=== PATIENT | female | born 1980 | race Caucasian/White ===

== ENCOUNTER 2021-02-23 17:54 | Emergency (ER) | payer BC, MEDICARE ==
[~2021-02-23] VITALS: Ht 162.6 cm; Wt 94.9 kg
[~2021-02-23 17:54] MED LIST: ATI.5 PO; IBUP-974 PO; LANTUS SUBQ; SLIDE SUBQ
[2021-02-23 18:04] VITALS: BP 132/79
[2021-02-23] MEDS ORDERED: CEPH-588 PO (18:18)
[2021-02-23] MEDS ORDERED: IBUP-1842 PO (18:18)
[2021-02-23 18:35] VITALS: BP 132/79
--- NOTE | 2021-02-23 18:35 | NUR ---
NO NURSING INTERVENTIONS GIVEN
--- NOTE | 2021-02-23 18:35 | NUR ---
Patient discharged with v/s stable. Written and verbal after care instructions ABOUT SKIN ABSCESS given and explained. Patient alert, oriented and verbalized understanding of instructions. Ambulatory with steady gait. All questions addressed prior to discharge. ID band removed. Patient advised to follow up with PMD. Rx of KEFLEX AND IBUPROFEN given. Patient educated on indication of medication including possible reaction and side effects. Opportunity to ask questions provided and answered.
== END 2021-02-23 18:35 | disposition home or self-care (01) ==
LOC: MED 17:54
DX: L02.416 Cutaneous abscess of left lower limb (principal); E11.9 Type 2 diabetes mellitus without complications; Z79.82 Long term (current) use of aspirin; Z79.899 Other long term (current) drug therapy; Z79.4 Long term (current) use of insulin
CPT/HCPCS: 99284

== ENCOUNTER 2021-02-26 10:12 | Inpatient (IN) | payer BC, SELFPAY ==
[~2021-02-26] VITALS: Ht 162.6 cm; Wt 92.1 kg
[~2021-02-26 10:12] MED LIST changes: +CEPH-588 PO; +IBUP-1842 PO
[2021-02-26 10:24] VITALS: BP 140/83
--- NOTE | 2021-02-26 10:39 | NUR ---
40/F presents to ED with c/o abscess to left inner thigh. Patient states she has had worsening abscess in left inner thigh, states she was seen here two days ago for the same symptoms and given Rx of Cephalexin but states she has not experienced any relief. Patient states 10/10 throbbing/burning pain that radiates to left labia and worsens with ambulation or attempting to sit straight up. Denies taking anything at home for pain, golf size abscess noted with yellow drainage to left inner thigh. Patient denies fever, chills, cp or sob, patient able to ambulate without assistance with steady gait.
[2021-02-26] MEDS ORDERED: HYDROcodone/APAP 5/325 MG 1 TAB TAB PO ONE (10:50)
[2021-02-26] MEDS ORDERED: KETOROLAC 30 MG/ML VIAL IM ONE (10:50)
[2021-02-26] MEDS: LIDOCAINE/EPI 1% 1:100000 20 ML VIAL INJ ONE ×2 (11:54→13:15)
[2021-02-26] MEDS ORDERED: NACL 0.9% 1,000 ML IV ONE (12:00)
[2021-02-26] MEDS ORDERED: PIPERACILLIN/TAZOBACTAM 3.375 GM in DEXTROSE 5% 50 ML IV ONE (12:00)
[2021-02-26] MEDS ORDERED: PIPERACILLIN/TAZOBACTAM 3.375 GM VIAL IV ONE ×3 (12:35→23:34)
[2021-02-26 12:47] LABS: BASOPHILS % (AUTO) 0.4 % (0.0-2.0); EOSINOPHILS % (AUTO) 0.5 % (0.0-4.0); HEMATOCRIT 36.7 % (36-48); LYMPHOCYTES # (AUTO) 1.8 K/uL (2.5-16.5); LYMPHOCYTES % (AUTO) 23.1 % (20.5-51.1); MEAN CORPUSCULAR HEMOGLOBIN 20 pg (27-31); MEAN CORPUSCULAR HGB CONC 30 g/dL (33-37); MONOCYTES # (AUTO) 0.5 K/uL (0.8-1.0); MONOCYTES % (AUTO) 5.9 % (1.7-9.3); NEUTROPHILS # (AUTO) 5.4 K/uL (1.8-7.7); NEUTROPHILS % (AUTO) 70.1 % (42.2-75.2); PLATELET COUNT (AUTO) 183 K/uL (140-450); RED BLOOD CELL COUNT(AUTO) 5.64 MIL/uL (4.20-5.40); RED CELL DISTRIBUTION WIDTH 23.1 % (11.6-13.7); WHITE BLOOD COUNT (AUTO) 7.7 K/uL (4.8-10.8)
--- NOTE | 2021-02-26 12:54 | NUR ---
MARY CARMEN SWAB COLLECTED AND WALKED TO LAB.
[2021-02-26 13:23] LABS: ANION GAP 15.9 (8-16); CARBON DIOXIDE 25.1 mmol/L (21-32); CREATININE 0.6 mg/dL (0.6-1.3)
[2021-02-26 13:39] LABS: ALBUMIN 3.4 g/dL (3.4-5.0); TOTAL BILIRUBIN 0.9 mg/dL (0.0-1.0)
--- NOTE | 2021-02-26 14:54 | NUR ---
DR. MILLS EVALUATING PATIENT AT BEDSIDE.
--- NOTE | 2021-02-26 16:00 | NUR ---
Patient appears to be resting with eyes closed, respirations even and unlabored. 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
[2021-02-26] MEDS ORDERED: DOCUSATE SODIUM 100 MG GELCAP PO PRN (16:20)
[2021-02-26] MEDS ORDERED: ACETAMINOPHEN 325 MG TAB PO PRN (16:20)
[2021-02-26] MEDS ORDERED: ONDANSETRON 4 MG/2 ML VIAL IM/IVP PRN (16:20)
[2021-02-26] MEDS ORDERED: MAGNESIUM OXIDE 400 MG TAB PO PRN (16:20)
[2021-02-26] MEDS ORDERED: POTASSIUM CHLORIDE 10 MEQ TABER PO PRN (16:20)
[2021-02-26] MEDS ORDERED: SODIUM PHOS / POTASSIUM PHOS 1 PKT PDR PO PRN (16:20)
[2021-02-26] MEDS ORDERED: MORPHINE SULFATE 2 MG/ML SYR IVP PRN (16:20)
[2021-02-26] MEDS ORDERED: DEXTROSE 50% 50 ML SYR IVP PRN (16:25)
[2021-02-26] MEDS: BLOOD GLUCOSE MONITORING 1 DEV DEV FS SCH ×2 (17:03→23:45)
[2021-02-26] MEDS: NACL 0.9% 1,000 ML IV SCH ×2 (17:03→23:49)
[2021-02-26] MEDS: INSULIN LISPRO SLIDING SCALE 100 UNITS/ML VIAL SUBQ PRN (17:08)
[2021-02-26 17:15] LABS: MAGNESIUM 1.7 mg/dL (1.8-2.4); PHOSPHORUS 3.4 mg/dL (2.5-4.9)
--- NOTE | 2021-02-26 18:15 | NUR ---
Dr. GUERRA bedside speaking with patient
--- NOTE | 2021-02-26 18:20 | NUR ---
Patient c/o 7/10 pain to left inner thigh, medicated with PRN ordered medication.
[2021-02-26] MEDS: PIPERACILLIN/TAZOBACTAM 3.375 GM in DEXTROSE 5% 50 ML IV SCH ×2 (18:29→23:49)
--- NOTE | 2021-02-26 18:49 | NUR ---
Patient ambulated to restroom with steady gait to provide urine sample.
[2021-02-26 19:14] LABS: APPEARANCE,URINE CLEAR (CLEAR); BILIRUBIN,URINE NEGATIVE (NEGATIVE); BLOOD, URINE NEGATIVE (NEGATIVE); COLOR,URINE ORANGE (YELLOW); LEUKOCYTE ESTERASE ,URINE NEGATIVE (NEGATIVE); NITRITE, URINE NEGATIVE (NEGATIVE); UGLUCOSE 2+ (NEGATIVE)
--- NOTE | 2021-02-26 19:24 | NUR ---
Pt report given to Shaylee. Transfer of care at this time.
--- NOTE | 2021-02-26 19:28 | NUR ---
RECEIVED REPORT FROM CRYSTAL ORELLANA. TRANSFER OF CARE AT THIS TIME.
[2021-02-26 19:56] LABS: BARBITURATE, URINE NEGATIVE ng/ml (NEG <=200); BENZODIAZEPINE, URINE NEGATIVE ng/mL (NEG <=200); CANNABINOID, URINE NEGATIVE ng/mL (NEG <=50); COCAINE, URINE NEGATIVE ng/mL (NEG <=300); OPIATE, URINE POSITIVE ng/mL (NEG <=2000); PHENCYCLIDINE SCREEN,URINE NEGATIVE ng/mL (NEG <=25)
[2021-02-26] MEDS ORDERED: ceFAZolin 1,000 MG VIAL ONE (20:03)
--- NOTE | 2021-02-26 20:12 | NUR ---
Patient will be admitted to care of DR. GUERRA. Admited to OR. Belongings list completed. ACCOMPANIED BY OR NURSE TO OR ROOM.
[2021-02-26] MEDS ORDERED: HYDROmorphone 1 MG/ML AMP IVP PRN ×2 (20:20→20:55)
[2021-02-26] MEDS ORDERED: PROPOFOL 200 MG/20 ML VIAL IV ONE (20:29)
[2021-02-26] MEDS ORDERED: ONDANSETRON 4 MG/2 ML VIAL ONE (20:29)
[2021-02-26] MEDS ORDERED: fentaNYL citrate 0.05 MG/ML VIAL ONE (20:30)
[2021-02-26] MEDS ORDERED: BUPIVACAINE-MPF/EPI 0.5% 30 ML VIAL INJ ONE (20:37)
[2021-02-26] MEDS ORDERED: ONDANSETRON 4 MG/2 ML VIAL IV PRN (20:55)
[2021-02-26] MEDS ORDERED: MORPHINE SULFATE 4 MG/ML SYR IV PRN (20:55)
--- NOTE | 2021-02-26 22:00 | NUR ---
RECEIVED NEW ADMISSION FROM OR, DX: ABSCESS LEFT POSTERIOR THIGH, HAD AN I&D, HX: DM, HYPOTHYROIDISM, PT HAS BELONGINGS WITH HER, MRSA SWAB WAS TAKEN, VITALS BP 118/72, HR 97, TEMP 98.3, RR 20 ON ROOM AIR, A&O X4, AMBULATORY, SCHEDULED MEDS GIVEN, HAS A LAC 20G, CALL LIGHT WITHIN REACH, SAFETY MEASURES IN PLACE, WILL CONTINUE TO MONITOR.
--- NOTE | 2021-02-26 23:30 | NUR ---
PATIENT IS KEPT COMFORTABLE IN BED, SAFETY MEASURES IN PLACE, PT HAD AN APPETITE - PROVIDED WATER AND A TURKEY SANDWICH, WILL CONTINUE TO MONITOR.
[2021-02-26] MEDS: INSULIN LANTUS 100 UNITS/ML 10 ML VIAL SUBQ SCH (23:49)
[2021-02-26] MEDS: HYDROcodone/APAP 5/325 MG 1 TAB TAB PO PRN (23:55)
--- NOTE | 2021-02-27 02:43 | NUR ---
PATIENT IS ASLEEP, NO SIGNS OF DISTRESS, OBSERVATION OF CHEST RISE AND FALL, KEPT COMFORTABLE, IV SITE IS DRY AND PATENT, WILL CONTINUE TO MONITOR AND NOTIFY MD NEEDED.
[2021-02-27 04:00] VITALS: BP 113/65
[2021-02-27 05:54] LABS: BASOPHILS % (AUTO) 0.4 % (0.0-2.0); EOSINOPHILS # (AUTO) 0.1 K/uL (0-0.4); EOSINOPHILS % (AUTO) 0.7 % (0.0-4.0); HEMATOCRIT 31.1 % (36-48); HEMOGLOBIN 9.4 g/dL (12.0-16.0); LYMPHOCYTES # (AUTO) 2.2 K/uL (2.5-16.5); LYMPHOCYTES % (AUTO) 28.5 % (20.5-51.1); MEAN CORPUSCULAR HEMOGLOBIN 20 pg (27-31); MEAN CORPUSCULAR HGB CONC 30 g/dL (33-37); MEAN CORPUSCULAR VOLUME 65.5 fL (80-94); MONOCYTES # (AUTO) 0.6 K/uL (0.8-1.0); MONOCYTES % (AUTO) 7.7 % (1.7-9.3); NEUTROPHILS # (AUTO) 4.8 K/uL (1.8-7.7); NEUTROPHILS % (AUTO) 62.7 % (42.2-75.2); PLATELET COUNT (AUTO) 154 K/uL (140-450); RED BLOOD CELL COUNT(AUTO) 4.76 MIL/uL (4.20-5.40); RED CELL DISTRIBUTION WIDTH 23.2 % (11.6-13.7); WHITE BLOOD COUNT (AUTO) 7.6 K/uL (4.8-10.8)
[2021-02-27] MEDS ORDERED: PIPERACILLIN/TAZOBACTAM 3.375 GM VIAL IV ONE (05:55)
[2021-02-27] MEDS: HYDROcodone/APAP 5/325 MG 1 TAB TAB PO PRN ×2 (06:05→14:42)
[2021-02-27] MEDS: PIPERACILLIN/TAZOBACTAM 3.375 GM in DEXTROSE 5% 50 ML IV SCH ×4 (06:05→23:43)
[2021-02-27 06:06] LABS: ANION GAP 7.3 (8-16); CARBON DIOXIDE 28.4 mmol/L (21-32); CREATININE 0.6 mg/dL (0.6-1.3); POTASSIUM 3.7 mmol/L (3.5-5.1)
[2021-02-27] MEDS: INSULIN LISPRO SLIDING SCALE 100 UNITS/ML VIAL SUBQ PRN ×4 (06:08→21:49)
[2021-02-27] MEDS: BLOOD GLUCOSE MONITORING 1 DEV DEV FS SCH ×4 (06:18→21:44)
--- NOTE | 2021-02-27 07:14 | NUR ---
PATIENT HAS BEEN SCREENED AND CATEGORIZED MODERATE NUTRITION RISK. PATIENT WILL BE SEEN WITHIN 3-5 DAYS OF ADMISSION. 03/01/21-03/03/21 MIKE WHITNEY MS, RDN
--- NOTE | 2021-02-27 07:15 | NUR ---
RECEIVED REPORT FROM BPM DEVELOPER NURSE FOR CONTINUITY OF PATIENT CARE. PATIENT SLEEPING. NO ACUTE DISTRESS NOTED. PATIENT HAS R AC 20G RUNNING NS AT 60ML/HR. PATIENT ON ROOM AIR. ALL SAFETY MEASURES IN PLACE. CALL LIGHT WITHIN REACH WILL CONTINUE TO MONITOR.
--- NOTE | 2021-02-27 07:21 | NUR ---
ENDORSED PATIENT TO DAY SHIFT NURSE FOR CONTINUITY OF CARE
--- NOTE | 2021-02-27 09:13 | NUR ---
PATIENT SLEEPING. NO ACUTE DISTRESS NOTED. PATIENT ON ON ROOM AIR. ALL SAFETY MEASURES IN PLACE. CALL LIGHT WITHIN REACH. WILL CONTINUE TO MONITOR.
--- NOTE | 2021-02-27 11:40 | NUR ---
WOUND CARE EVALUATION NOTES: REASON FOR EVALUATION: CELLULITIS LEFT THIGH S/P I&D WOUND ASSESSMENT COMPLETED ON THIS 40 Y/O FEMALE ADMITTED TO [facility] FOR CELLULITIS ON LEFT THIGH. PAST MEDICAL HISTORY INCLUDES DM, THYROID DISORDER, ASTHMA, ANEMIA, MENORHAGIA. ALL ABOVE INFORMATION WAS OBTAINED FROM THE ADMISSION H&P. LABS ARE WBC 7.6, H/H 9.4/31.1, GLUCOSE 278, ALBUMIN 3.4. PATIENT IS AAOX4. SKIN IS WARM TO TOUCH, COLOR APPROPRIATE TO ETHNICITY. ORAL MUCOSAL MEMBRANES MOIST. INDEPENDENT IN TURNING AND ABLE TO AMBULATE INDEPENDENTLY WITH STEADY GAIT. PLAN OF WOUND CARE DISCUSSED WITH PATIENT AND PRIMARY RN. PATIENT VERBALIZED UNDERSTANDING. PATIENT ADMITTED WITH LEFT THIGH CELLULITIS S/P I&D ON 02/26/21. COMORBIDITIES RELATED TO FURTHER SKIN BREAKDOWN SUCH DM II HISTORY. INTEGUMENTARY: - S/P I&D LEFT POSTERIOR THIGH ABSCESS ON 02/26/21. WOUND BED MOIST, PINK, MODERATE SERSANGUINOUS DRAINAGE, EARLY GRANULATION. PERIWOUND INTACT, PINK, DRY. OPEN WOUND, NO SUTURES/DERMABOND. RECOMMENDATIONS: - S/P I&D LEFT POSTERIOR THIGH ABSCESS - CLEANSE WITH NS, PAT DRY, COVER WITH DRY DRESING AND ABD PAD, AND SECURE WITH PAPER TAPE DAILY AND PRN IF SOILED. - ASSESS AND MONITOR SKIN CONDITION QSHIFT.
[2021-02-27] MEDS: MORPHINE SULFATE 2 MG/ML SYR IVP PRN ×2 (11:43→17:59)
--- NOTE | 2021-02-27 11:50 | NUR ---
PATIENT AWAKE AND ALERT. NO ACUTE DISTRESS NOTED. PATIENT ON ON ROOM AIR. WOUND NURSE AT BEDSIDE. ALL SAFETY MEASURES IN PLACE. CALL LIGHT WITHIN REACH. WILL CONTINUE TO MONITOR.
--- NOTE | 2021-02-27 13:16 | NUR ---
PATIENT AWAKE AND ALERT. NO ACUTE DISTRESS NOTED. PATIENT ON ON ROOM AIR. HAND WRAPPER OPERATOR AT BESIDE AIDING PATIENT WITH PATIENT'S ADLS. ALL SAFETY MEASURES IN PLACE. CALL LIGHT WITHIN REACH. WILL CONTINUE TO MONITOR.
--- NOTE | 2021-02-27 14:28 | NUR ---
PATIENT AWAKE AND ALERT. NO ACUTE DISTRESS NOTED. PATIENT ON PHONE TALKING WITH FAMILY. ALL SAFETY MEASURES IN PLACE. CALL LIGHT WITHIN REACH. WILL CONTINUE TO MONITOR.
--- NOTE | 2021-02-27 14:47 | NUR ---
PT AWAKE AND ALERT. NO ACUTE DISTRESS NOTED. PT ON ROOM AIR. ALL SAFETY MEASURES IN PLACE. CALL LIGHT WITHIN REACH. WILL CONTINUE TO MONITOR
[2021-02-27 16:00] VITALS: BP 121/79
--- NOTE | 2021-02-27 17:15 | NUR ---
PATIENT SLEEPING. NO ACUTE DISTRESS NOTED. PATIENT ON ROOM AIR. ALL SAFETY MEASURES IN PLACE. CALL LIGHT WITHIN REACH. WILL CONTINUE TO MONITOR .
--- NOTE | 2021-02-27 19:15 | NUR ---
ENDORSED TO AGRONOMY ADVISOR FOR CONTINUITY OF PATIENT CARE. PATIENT STABLE. ALL SAFETY MEASURES IN PLACE.
--- NOTE | 2021-02-27 19:43 | NUR ---
RECEIVED BEDSIDE ENDORSEMENT FROM AM SHIFT RN. PT IS ASLEEP, NO SIGNS OF DISTRESS, HAS NS RUNNING AT 60 ML/HR, RAC 20G - DRY, AND INTACT, ON ROOM AIR, SAFETY MEASURES IN PLACE, CALL LIGHT WITHIN REACH, WILL CONTINUE TO MONITOR.
[2021-02-27] MEDS: NACL 0.9% 1,000 ML IV SCH (21:14)
--- NOTE | 2021-02-27 21:25 | NUR ---
LEFT UPPER LEG DRESSING SOILED. CLEANSED WOUND WITH NS PAT DRY APPLIED DRESSING.
[2021-02-27] MEDS: INSULIN LANTUS 100 UNITS/ML 10 ML VIAL SUBQ SCH (21:49)
--- NOTE | 2021-02-27 21:50 | NUR ---
ADMINISTERED APPROPRIATE MEDS, PATIENT IS KEPT COMFORTABLE IN BED, CHANGED GOWN, PROVIDED HYGIENIC PRODUCTS IN LIZ BIN, NS RUNNING AT 60ML/HR, SAFETY MEASURES IN PLACE, DENIES PAIN, WILL CONTINUE TO MONITOR, AND NOTIFY MD NEEDED.
--- NOTE | 2021-02-27 23:00 | NUR ---
PATIENT IN BED, KEPT COMFORTABLE, NO SIGNS OF DISTRESS, OBSERVATION OF CHEST RISE AND FALL, SAFETY MEASURES IN PLACE, WILL CONTINUE TO MONITOR, CALL LIGHT WITHIN REACH.
--- NOTE | 2021-02-28 01:14 | NUR ---
PATIENT HAD PAIN, GAVE MORPHINE PRN 2MG, OTHERWISE KEPT COMFORTABLE, WILL CONTINUE TO MONITOR.
--- NOTE | 2021-02-28 02:14 | NUR ---
REASSESSED PATIENT FOR PAIN, PATIENT DENIES 0 PAIN, WILL CONTINUE TO MONITOR, CALL LIGHT WITHIN REACH.
[2021-02-28 04:00] VITALS: BP 117/68
[2021-02-28] MEDS: PIPERACILLIN/TAZOBACTAM 3.375 GM in DEXTROSE 5% 50 ML IV SCH (05:18)
[2021-02-28 05:55] LABS: ANION GAP 10.9 (8-16); CARBON DIOXIDE 26.5 mmol/L (21-32); CREATININE 0.5 mg/dL (0.6-1.3); POTASSIUM 3.4 mmol/L (3.5-5.1)
[2021-02-28 06:28] LABS: BASOPHILS % (AUTO) 0.6 % (0.0-2.0); EOSINOPHILS # (AUTO) 0.1 K/uL (0-0.4); EOSINOPHILS % (AUTO) 2.1 % (0.0-4.0); HEMATOCRIT 31.3 % (36-48); HEMOGLOBIN 9.4 g/dL (12.0-16.0); LYMPHOCYTES # (AUTO) 1.9 K/uL (2.5-16.5); LYMPHOCYTES % (AUTO) 35.3 % (20.5-51.1); MEAN CORPUSCULAR HEMOGLOBIN 20 pg (27-31); MEAN CORPUSCULAR HGB CONC 30 g/dL (33-37); MONOCYTES # (AUTO) 0.4 K/uL (0.8-1.0); MONOCYTES % (AUTO) 7.6 % (1.7-9.3); NEUTROPHILS # (AUTO) 2.9 K/uL (1.8-7.7); NEUTROPHILS % (AUTO) 54.4 % (42.2-75.2); PLATELET COUNT (AUTO) 160 K/uL (140-450); RED BLOOD CELL COUNT(AUTO) 4.74 MIL/uL (4.20-5.40); RED CELL DISTRIBUTION WIDTH 22.9 % (11.6-13.7); WHITE BLOOD COUNT (AUTO) 5.4 K/uL (4.8-10.8)
[2021-02-28] MEDS: BLOOD GLUCOSE MONITORING 1 DEV DEV FS SCH (06:48)
[2021-02-28] MEDS: INSULIN LISPRO SLIDING SCALE 100 UNITS/ML VIAL SUBQ PRN (06:52)
--- NOTE | 2021-02-28 07:46 | NUR ---
CHANGED PATIENTS SEROSANGUINEOUS DRESSING, NEW DRESSING IS DRY AND INTACT, PASSED ON ENDORSEMENT TO AM SHIFT RN.
--- NOTE | 2021-02-28 07:47 | NUR ---
PT RECEIVED FROM LEAD GENERATION MARKETING MANAGER RN. PT RESTING IN BED . NO S/SX OF DISTRESS AT THIS TIME. CALL LIGHT WITHIN REACH
[2021-02-28] MEDS: HYDROcodone/APAP 5/325 MG 1 TAB TAB PO PRN (09:51)
[2021-02-28] MEDS ORDERED: SULF-280 PO (09:51)
[2021-02-28] MEDS ORDERED: ACET-9525 PO (09:53)
[2021-02-28] MEDS ORDERED: LACT-2 (09:53)
--- NOTE | 2021-02-28 09:53 | NUR ---
PATIENT COMPLAINS OF 6/10 PAIN ON LEG. MEDICATIONS GIVEN PER MD ORDER. PT EDUCATED VERBALIZED UNDERSTANDING. NO S/SX OF DISTRESS AT THIS TIME. CALL LIGHT WITHIN REACH. ALL SAFETY MEASURES ARE IN PLACE.
--- NOTE | 2021-02-28 10:30 | NUR ---
PATIENT DISCHARGE INSTRUCTIONS COMPLETE. PT RESTING IN BED. NO S/SX OF DISTRESS AT THIS TIME
--- NOTE | 2021-02-28 10:35 | NUR ---
WOUND CARE COMPLETE PT EDUCATED. PT VERBALIZED UNDERSTANDING FOR CONTINUITY OF CARE. IV REMOVED CANULA INTACT. PT PROVIDED SUPPLIES TO
--- NOTE | 2021-02-28 10:45 | NUR ---
PT LEFT UNIT ARM BANDS REMOVED. PT VERBALIZED UNDERSTANDING FPR CONTINUITY OF CARE. NO QUESTIONS AT THIS TIME . PT IN STABLE CONDITION
== END 2021-02-28 10:51 | disposition home or self-care (01) | DRG 720 ==
LOC: MED 10:12 → MMU 14:29 → MTU 20:12 → MMU 02-28 08:33
PROVIDERS: ADMIT Hospitalist; ATTEND Hospitalist
PROC: 0HBJXZZ Excision of Left Upper Leg Skin, External Approach (ICD-10-PCS; principal; 2021-02-26 20:40)
DX: A41.9 Sepsis, unspecified organism (principal); E87.8 Other disorders of electrolyte and fluid balance, not elsewhere classified; E87.1 Hypo-osmolality and hyponatremia; L02.416 Cutaneous abscess of left lower limb; E11.65 Type 2 diabetes mellitus with hyperglycemia; D50.9 Iron deficiency anemia, unspecified; E07.9 Disorder of thyroid, unspecified; L03.116 Cellulitis of left lower limb; J45.909 Unspecified asthma, uncomplicated; N92.0 Excessive and frequent menstruation with regular cycle; Z20.822 Contact with and (suspected) exposure to COVID-19; Z88.6 Allergy status to analgesic agent; Z79.4 Long term (current) use of insulin; Z79.899 Other long term (current) drug therapy; Z98.891 History of uterine scar from previous surgery; Z98.51 Tubal ligation status
CPT/HCPCS: 36415; 76881; 80048; 80053; 80305; 81003; 81025; 82948; 83036; 83605; 83735; 84100; 84443; 85025; 87040; 87070; 87075; 87081; 87186; 87205; 88304; 96365; 96372; 96375; 99285; J0690; J1815; J1885; J2001; J2270; J2405; J2543; J2704; J3010; J3490; J7060; Q0092

== ENCOUNTER 2021-03-06 11:42 | Emergency (ER) | payer BC, SELFPAY ==
[~2021-03-06] VITALS: Ht 167.6 cm; Wt 74.4 kg
[~2021-03-06 11:42] MED LIST changes: +ACET-9525 PO; -CEPH-588 PO; -IBUP-1842 PO; +LACT-2; +SULF-280 PO
[2021-03-06 12:17] VITALS: BP 117/83
--- NOTE | 2021-03-06 12:21 | NUR ---
PT SEEN BY DR. HUGO IN TRIAGE. FEMALE CHAPPERONE ACCOMPANIED FOR WOUND CHECK.
--- NOTE | 2021-03-06 12:23 | NUR ---
40/M presents to ED with c/o wound check to left upper thigh. Pt was admitted here on 02/26 and had an I&D done by Dr. Baez during her admission. Pt followed up with PCP on Monday and pt states the doctor packed it with gauze. Pt states ever since she has been having burning pain. "It feels like I rubbed chili on it." Pt reports that she is still having drainage from the site. Denies fever or chills. Pt states she is routinely changing out her dressings daily and as needed.
[2021-03-06] MEDS ORDERED: CLIN300C2 PO (12:54)
--- NOTE | 2021-03-06 12:57 | NUR ---
PATIENT AMBULATED TO BED 4 AT THIS TIME.
[2021-03-06] MEDS ORDERED: NACL 0.9% 1,000 ML IV ONE (13:00)
[2021-03-06] MEDS ORDERED: CLINDAMYCIN 900 MG in DEXTROSE 5% 100 ML IV ONE (13:00)
[2021-03-06] MEDS ORDERED: CLINDAMYCIN 900 MG/6 ML VIAL IV ONE (13:03)
--- NOTE | 2021-03-06 13:14 | NUR ---
Blood sample collected, walked to lab and handed to CPT. Madina
[2021-03-06 13:38] LABS: BASOPHILS % (AUTO) 0.7 % (0.0-2.0); EOSINOPHILS # (AUTO) 0.1 K/uL (0-0.4); EOSINOPHILS % (AUTO) 1.2 % (0.0-4.0); HEMATOCRIT 35.9 % (36-48); LYMPHOCYTES # (AUTO) 2.1 K/uL (2.5-16.5); LYMPHOCYTES % (AUTO) 32.2 % (20.5-51.1); MEAN CORPUSCULAR HEMOGLOBIN 20 pg (27-31); MEAN CORPUSCULAR HGB CONC 31 g/dL (33-37); MEAN CORPUSCULAR VOLUME 65.7 fL (80-94); MONOCYTES # (AUTO) 0.4 K/uL (0.8-1.0); MONOCYTES % (AUTO) 6.1 % (1.7-9.3); NEUTROPHILS # (AUTO) 3.8 K/uL (1.8-7.7); NEUTROPHILS % (AUTO) 59.8 % (42.2-75.2); PLATELET COUNT (AUTO) 242 K/uL (140-450); RED BLOOD CELL COUNT(AUTO) 5.46 MIL/uL (4.20-5.40); RED CELL DISTRIBUTION WIDTH 22.9 % (11.6-13.7); WHITE BLOOD COUNT (AUTO) 6.4 K/uL (4.8-10.8)
[2021-03-06 13:52] LABS: ALBUMIN 3.4 g/dL (3.4-5.0); ANION GAP 12.3 (8-16); CARBON DIOXIDE 27.1 mmol/L (21-32); CREATININE 0.7 mg/dL (0.6-1.3); POTASSIUM 4.4 mmol/L (3.5-5.1); TOTAL BILIRUBIN 0.5 mg/dL (0.0-1.0)
[2021-03-06 14:15] VITALS: BP_SYST 123
[2021-03-06 14:20] VITALS: BP_DIAS 78
--- NOTE | 2021-03-06 14:20 | NUR ---
Patient discharged with v/s stable. Written and verbal after care instructions given and explained. Patient alert, oriented and verbalized understanding of instructions. Ambulatory with steady gait. All questions addressed prior to discharge. ID band removed. Patient advised to follow up with PMD. Rx of Clindamycin given. Patient educated on indication of medication including possible reaction and side effects. Opportunity to ask questions provided and answered.
== END 2021-03-06 14:20 | disposition home or self-care (01) ==
LOC: MED 11:42
DX: L03.116 Cellulitis of left lower limb (principal); E11.9 Type 2 diabetes mellitus without complications
CPT/HCPCS: 36415; 80053; 85025; 96365; 99284; J3490; J7030

== ENCOUNTER 2021-03-14 16:21 | Emergency (ER) | payer BC, SELFPAY ==
[~2021-03-14] VITALS: Ht 162.6 cm; Wt 94.3 kg
[~2021-03-14 16:21] MED LIST changes: +CLIN300C2 PO
[2021-03-14 16:24] VITALS: BP 112/75
--- NOTE | 2021-03-14 17:00 | NUR ---
40 YO FEMALE BIBS FOR WOUND CHECK S/P ABSCESS AND I&D X3 WEEKS AGO. WOUND IS ON L GROIN INNER THIGH COVERED WITH LARGE BANDAIDE. WOUND IS APPROX 2 CM, OPEN, NO DRAINAGE OR S/S OF INFECTION NOTED TO SITE. PATIENT DENIES FEVER, CHILLS, N/V/D. A&OX4, VSS. PMH: DM, HYPOTHYROIDISM NKDA
--- NOTE | 2021-03-14 17:11 | NUR ---
ZULMA 414 MD CASTANO MADE AWARE.
--- NOTE | 2021-03-14 17:12 | NUR ---
MD AT BEDSIDE EVALUATING PATIENT.
[2021-03-14] MEDS ORDERED: NACL 0.9% 1,000 ML IV ONE (17:20)
[2021-03-14 17:46] LABS: BASOPHILS % (AUTO) 0.5 % (0.0-2.0); EOSINOPHILS # (AUTO) 0.1 K/uL (0-0.4); EOSINOPHILS % (AUTO) 1.2 % (0.0-4.0); HEMATOCRIT 35.8 % (36-48); HEMOGLOBIN 10.9 g/dL (12.0-16.0); LYMPHOCYTES # (AUTO) 1.7 K/uL (2.5-16.5); LYMPHOCYTES % (AUTO) 28.9 % (20.5-51.1); MEAN CORPUSCULAR HEMOGLOBIN 20 pg (27-31); MEAN CORPUSCULAR HGB CONC 30 g/dL (33-37); MONOCYTES # (AUTO) 0.3 K/uL (0.8-1.0); MONOCYTES % (AUTO) 5.2 % (1.7-9.3); NEUTROPHILS # (AUTO) 3.8 K/uL (1.8-7.7); NEUTROPHILS % (AUTO) 64.2 % (42.2-75.2); PLATELET COUNT (AUTO) 213 K/uL (140-450); RED BLOOD CELL COUNT(AUTO) 5.35 MIL/uL (4.20-5.40); RED CELL DISTRIBUTION WIDTH 22.8 % (11.6-13.7); WHITE BLOOD COUNT (AUTO) 5.9 K/uL (4.8-10.8)
[2021-03-14 18:06] LABS: ALBUMIN 3.5 g/dL (3.4-5.0); CARBON DIOXIDE 24.7 mmol/L (21-32); CREATININE 0.8 mg/dL (0.6-1.3); POTASSIUM 3.7 mmol/L (3.5-5.1); TOTAL BILIRUBIN 0.5 mg/dL (0.0-1.0)
[2021-03-14] MEDS ORDERED: LACTATED RINGERS 1,000 ML IV ONE (18:10)
--- NOTE | 2021-03-14 18:59 | NUR ---
ACCUCHECK RECHECK 272
--- NOTE | 2021-03-14 19:13 | NUR ---
Patient discharged with v/s stable. Written and verbal after care instructions given and explained. Patient verbalized understanding. Ambulatory with steady gait. All questions addressed prior to discharge. Advised to follow up with PMD.
== END 2021-03-14 19:13 | disposition home or self-care (01) ==
LOC: MED 16:21
DX: L02.416 Cutaneous abscess of left lower limb (principal); E11.65 Type 2 diabetes mellitus with hyperglycemia; E07.9 Disorder of thyroid, unspecified; Z79.899 Other long term (current) drug therapy; Z79.4 Long term (current) use of insulin; Z79.82 Long term (current) use of aspirin; Z88.6 Allergy status to analgesic agent
CPT/HCPCS: 36415; 80053; 82009; 82803; 83690; 85025; 96360; 96361; 99283; J7030; J7120

== ENCOUNTER 2021-05-23 19:25 | Emergency (ER) | payer BC ==
[~2021-05-23] VITALS: Ht 162.6 cm; Wt 94.3 kg
[2021-05-23 19:43] VITALS: BP 142/93
--- NOTE | 2021-05-23 19:52 | NUR ---
patient to bed 2 ambulatory with urine cup for urine collection
[2021-05-23] MEDS ORDERED: ALUMINUM HYD/MAG/SIMETHICONE 30 ML, DICYCLOMINE HCL LIQUID 20 MG, LIDOCAINE VISCOUS 2% ... PO ONE ×3 (19:55)
[2021-05-23] MEDS ORDERED: NACL 0.9% 1,000 ML IV SCH (19:55)
[2021-05-23] MEDS ORDERED: ONDANSETRON 4 MG/2 ML VIAL IVP ONE (19:55)
[2021-05-23] MEDS ORDERED: ALUMINUM HYD/MAG/SIMETHICONE 30 ML UDC ONE (20:15)
[2021-05-23] MEDS ORDERED: DICYCLOMINE HCL LIQUID 10 MG/5 ML UDC ONE (20:15)
[2021-05-23 20:17] LABS: BASOPHILS % (AUTO) 0.5 % (0.0-2.0); EOSINOPHILS # (AUTO) 0.1 K/uL (0-0.4); EOSINOPHILS % (AUTO) 1.8 % (0.0-4.0); HEMOGLOBIN 13.3 g/dL (12.0-16.0); LYMPHOCYTES # (AUTO) 1.8 K/uL (2.5-16.5); LYMPHOCYTES % (AUTO) 43.6 % (20.5-51.1); MEAN CORPUSCULAR HEMOGLOBIN 24 pg (27-31); MEAN CORPUSCULAR HGB CONC 33 g/dL (33-37); MEAN CORPUSCULAR VOLUME 73.9 fL (80-94); MONOCYTES # (AUTO) 0.2 K/uL (0.8-1.0); MONOCYTES % (AUTO) 5.7 % (1.7-9.3); NEUTROPHILS % (AUTO) 48.4 % (42.2-75.2); PLATELET COUNT (AUTO) 183 K/uL (140-450); RED BLOOD CELL COUNT(AUTO) 5.54 MIL/uL (4.20-5.40); RED CELL DISTRIBUTION WIDTH 17.9 % (11.6-13.7); WHITE BLOOD COUNT (AUTO) 4.1 K/uL (4.8-10.8)
[2021-05-23 20:39] LABS: ANION GAP 11.4 (8-16); CARBON DIOXIDE 27.6 mmol/L (21-32); CREATININE 0.7 mg/dL (0.6-1.3); TOTAL BILIRUBIN 0.6 mg/dL (0.0-1.0)
--- NOTE | 2021-05-23 21:06 | NUR ---
PT IN ROOM ON ROOM AIR AOX4 WITH C/O EPIGASTIC PAIN. SHE WAS PROVIDED A 22G ON RIGHT AC. OPEN N/S BOLUS STARTED,GIVEN GI COKCTAIL AND IVP ZOFRAN. MED HX INCLUDES HYPOTHROIDISM, DM2 AND GASTRITIS. PT REPORTS 4/10 PAIN NOW SOME REIEF WITH GI COCKTAIL.
--- NOTE | 2021-05-23 21:41 | NUR ---
IV FLUSHED BOLUS IN PROGRESS US OF GALBLADDER DONE AT BEDSIDE.
--- NOTE | 2021-05-23 23:00 | NUR ---
IV BOLUS OF NS COMPLETED.
[2021-05-24] MEDS ORDERED: ONDA-188 PO (00:09)
[2021-05-24] MEDS ORDERED: MAG-27 PO (00:09)
--- NOTE | 2021-05-24 00:24 | NUR ---
PT DISCHARGED TO HOME WITH SCRIPTS SENT TO PHARMACY .CHARGE INSTRUCTIONS EXPLAINED AND PT VERBELIZED UNDERSTANDING. ARM BAND OFF AND IV SITE OUT WITH CANNULA INTACT. PT AMBULATED OUT THE DOOR IN A STEADY GAIT.
[2021-05-24 00:32] VITALS: BP 130/82
== END 2021-05-24 00:24 | disposition home or self-care (01) ==
LOC: MED 19:25
DX: R10.13 Epigastric pain (principal); E11.9 Type 2 diabetes mellitus without complications; Z86.39 Personal history of other endocrine, nutritional and metabolic disease; Z79.899 Other long term (current) drug therapy; Z79.891 Long term (current) use of opiate analgesic; Z79.2 Long term (current) use of antibiotics; Z79.4 Long term (current) use of insulin; Z79.1 Long term (current) use of non-steroidal anti-inflammatories (NSAID); Z88.6 Allergy status to analgesic agent
CPT/HCPCS: 36415; 76705; 80053; 81002; 81025; 83690; 85025; 96361; 96374; 99284; J2405; J7030; Q0092

== ENCOUNTER 2021-07-23 05:02 | Emergency (ER) | payer BC ==
[~2021-07-23] VITALS: Ht 71.1 cm; Wt 91.6 kg
[~2021-07-23 05:02] MED LIST changes: +MAG-27 PO; +ONDA-188 PO
[2021-07-23 05:38] VITALS: BP 125/90
[2021-07-23] MEDS ORDERED: NACL 0.9% 1,000 ML IV ONE ×2 (05:55→10:25)
--- NOTE | 2021-07-23 07:48 | NUR ---
PT AMBULATED TO ER BED 13 FOR CARDIAC MONITORING
--- NOTE | 2021-07-23 07:55 | NUR ---
Assumed care of pt at this time. Dr Mendoza made aware of elevated HR at 155 at this time.
[2021-07-23] MEDS ORDERED: ADENOSINE 6 MG/2 ML VIAL IVP ONE (08:00)
--- NOTE | 2021-07-23 08:00 | NUR ---
40 y/o Female BIB family for c/o of heart palpitations since 2am. Pt resp even and unlabored on RA. AOX4, able to make needs known. Denies N/V/D/CP at this time. Noted in SVT on the monitor at this time. All other systems WNL. PmHx: SVT, hypothyroidism, DM. Home meds:Glipizide 10mg, Insulin, Levothyroxine. Allergies: ASA
--- NOTE | 2021-07-23 08:22 | NUR ---
Adenosine 6mg administered while pt on EKG, Dr Mendoza at bedside. S/P IVP pt is SR 97. Tolerated medication well.
--- NOTE | 2021-07-23 08:36 | NUR ---
Pt is resting comfortably in bed talking on her Cell Phone. SR on the monitor. All safety measures in place.
[2021-07-23 08:38] VITALS: BP 140/92
[2021-07-23 09:08] LABS: BASOPHILS % (AUTO) 0.6 % (0.0-2.0); EOSINOPHILS # (AUTO) 0.1 K/uL (0-0.4); EOSINOPHILS % (AUTO) 1.2 % (0.0-4.0); HEMATOCRIT 40.9 % (36-48); HEMOGLOBIN 12.9 g/dL (12.0-16.0); LYMPHOCYTES # (AUTO) 2.8 K/uL (2.5-16.5); LYMPHOCYTES % (AUTO) 40.6 % (20.5-51.1); MEAN CORPUSCULAR HEMOGLOBIN 24 pg (27-31); MEAN CORPUSCULAR HGB CONC 32 g/dL (33-37); MEAN CORPUSCULAR VOLUME 74.6 fL (80-94); MONOCYTES # (AUTO) 0.4 K/uL (0.8-1.0); MONOCYTES % (AUTO) 6.1 % (1.7-9.3); NEUTROPHILS # (AUTO) 3.5 K/uL (1.8-7.7); NEUTROPHILS % (AUTO) 51.5 % (42.2-75.2); PLATELET COUNT (AUTO) 216 K/uL (140-450); RED BLOOD CELL COUNT(AUTO) 5.48 MIL/uL (4.20-5.40); RED CELL DISTRIBUTION WIDTH 15.7 % (11.6-13.7); WHITE BLOOD COUNT (AUTO) 6.9 K/uL (4.8-10.8)
[2021-07-23 09:53] LABS: ALBUMIN 3.4 g/dL (3.4-5.0); ANION GAP 16.3 (8-16); ASPARTATE AMINOTRANSFERASE 31 U/L (15-37); CARBON DIOXIDE 25.2 mmol/L (21-32); CHLORIDE 98 mmol/L (98-107); CREATININE 0.6 mg/dL (0.6-1.3); GFR ARICAN-AMERICAN 143 mL/min (>90); POTASSIUM 4.5 mmol/L (3.5-5.1); SODIUM SERUM 135 mmol/L (136-145); THYROID STIMULATING HORMONE 15.27 uIU/mL (0.34-3.74); TOTAL BILIRUBIN 0.6 mg/dL (0.0-1.0); UREA NITROGEN, BLOOD 17 mg/dL (7-18)
[2021-07-23 10:18] LABS: GLUCOSE 379 mg/dL (74-106)
[2021-07-23] MEDS ORDERED: INSULIN REGULAR, HUMAN 100 UNIT/ML VIAL IVP ONE (10:25)
--- NOTE | 2021-07-23 10:52 | NUR ---
Pt report given to Triny ROJAS. Transfer of care at this time.
--- NOTE | 2021-07-23 10:53 | NUR ---
MOVED TO CHAIR D
[2021-07-23] MEDS ORDERED: BLOOD GLUCOSE MONITORING 1 DEV DEV FS ONE (11:35)
[2021-07-23] MEDS ORDERED: LEVO0.0511 PO (12:19)
[2021-07-23] MEDS ORDERED: INSU100S22 SUBQ (12:19)
--- NOTE | 2021-07-23 12:40 | NUR ---
Patient discharged with v/s stable. Written and verbal after care instructions given and explained with teachback. Patient alert, oriented and verbalized understanding of instructions. Ambulatory with steady gait. All questions addressed prior to discharge. ID band removed. Patient advised to follow up with PMD. Rx of Lantus solostar/levothyroxine sodium given. Patient educated on indication of medication including possible reaction and side effects. Opportunity to ask questions provided and answered.
== END 2021-07-23 12:40 | disposition home or self-care (01) ==
LOC: MED 05:02
DX: R00.2 Palpitations (principal); E03.9 Hypothyroidism, unspecified; K21.9 Gastro-esophageal reflux disease without esophagitis; E11.9 Type 2 diabetes mellitus without complications; Z88.6 Allergy status to analgesic agent; Z79.899 Other long term (current) drug therapy
CPT/HCPCS: 71045; 80053; 81002; 81025; 82948; 84439; 84443; 84479; 84484; 84703; 85025; 93005; 96361; 96374; 96375; 99291; G0482; J0153; J1815; J7030

== ENCOUNTER 2021-09-16 00:08 | Emergency (ER) | payer BC ==
[~2021-09-16] VITALS: Ht 162.6 cm; Wt 93.4 kg
[~2021-09-16 00:08] MED LIST changes: +INSU100S22 SUBQ; +LEVO0.0511 PO
[2021-09-16 00:17] VITALS: BP 145/91
--- NOTE | 2021-09-16 00:43 | NUR ---
AMBULATED TO ER 12, DR AT BEDSIDE WITH FEMALE CHAPPERONE FOR ASSESSMENT
--- NOTE | 2021-09-16 00:45 | NUR ---
Dr. Hernnadez at bedside with KEVIN Morales to exam patient.
[2021-09-16] MEDS ORDERED: PIPERACILLIN/TAZOBACTAM 3.375 GM in DEXT 5% MINI-BAG PLUS 50 ML IV ONE (00:55)
[2021-09-16] MEDS ORDERED: VANCOMYCIN 1,000 MG in DEXTROSE 5% 250 ML IV ONE (00:55)
[2021-09-16] MEDS ORDERED: NACL 0.9% 2,000 ML IV SCH (00:55)
[2021-09-16] MEDS ORDERED: LIDOCAINE MPF 1% 10 MG/ML VIAL INJ ONE (00:55)
[2021-09-16] MEDS ORDERED: PIPERACILLIN/TAZOBACTAM 3.375 GM VIAL IV ONE (00:59)
--- NOTE | 2021-09-16 00:59 | NUR ---
LABS AND CULTURES COLLECTED BY MANAGER OPERATIONS RESEARCH AT THIS TIME
[2021-09-16] MEDS ORDERED: VANCOMYCIN 1,000 MG VIAL ONE (01:00)
--- NOTE | 2021-09-16 01:05 | NUR ---
NO D5 50ML AVAILABLE IN ER
[2021-09-16 01:08] LABS: BASOPHILS # (AUTO) 0.1 K/uL (0.00-0.22); BASOPHILS % (AUTO) 0.9 % (0.0-2.0); EOSINOPHILS # (AUTO) 0.1 K/uL (0-0.4); EOSINOPHILS % (AUTO) 0.6 % (0.0-4.0); HEMATOCRIT 37.7 % (36-48); LYMPHOCYTES # (AUTO) 1.9 K/uL (2.5-16.5); LYMPHOCYTES % (AUTO) 22.3 % (20.5-51.1); MEAN CORPUSCULAR HEMOGLOBIN 22 pg (27-31); MEAN CORPUSCULAR HGB CONC 32 g/dL (33-37); MEAN CORPUSCULAR VOLUME 70.2 fL (80-94); MONOCYTES # (AUTO) 0.5 K/uL (0.8-1.0); MONOCYTES % (AUTO) 5.7 % (1.7-9.3); NEUTROPHILS # (AUTO) 6.1 K/uL (1.8-7.7); NEUTROPHILS % (AUTO) 70.5 % (42.2-75.2); PLATELET COUNT (AUTO) 167 K/uL (140-450); RED BLOOD CELL COUNT(AUTO) 5.37 MIL/uL (4.20-5.40); RED CELL DISTRIBUTION WIDTH 15.4 % (11.6-13.7); WHITE BLOOD COUNT (AUTO) 8.7 K/uL (4.8-10.8)
[2021-09-16 01:09] LABS: APPEARANCE,URINE CLEAR (CLEAR); BILIRUBIN,URINE NEGATIVE (NEGATIVE); BLOOD, URINE NEGATIVE (NEGATIVE); COLOR,URINE YELLOW (YELLOW); LEUKOCYTE ESTERASE ,URINE NEGATIVE (NEGATIVE); NITRITE, URINE NEGATIVE (NEGATIVE); UGLUCOSE 3+ (NEGATIVE)
[2021-09-16 01:23] LABS: PROTHROMBIN TIME 9.7 secs (10.8-13.4)
--- NOTE | 2021-09-16 01:24 | NUR ---
I&D Procedure done by Dr Hernandez . Wound packed with 1/4 iodoform packing. DSD applied. Pt tolerated procedure well. Wound care discussed w/ patient. KEVIN Morales stayed with Dr. Hernandez entire time of I& D procedure.
[2021-09-16 01:28] LABS: ALBUMIN 3.6 g/dL (3.4-5.0); ANION GAP 13.9 (8-16); ASPARTATE AMINOTRANSFERASE 28 U/L (15-37); CARBON DIOXIDE 23.9 mmol/L (21-32); CHLORIDE 98 mmol/L (98-107); CREATININE 0.6 mg/dL (0.6-1.3); GFR ARICAN-AMERICAN 143 mL/min (>90); GLUCOSE 328 mg/dL (74-106); POTASSIUM 3.8 mmol/L (3.5-5.1); SODIUM SERUM 132 mmol/L (136-145); TOTAL BILIRUBIN 0.8 mg/dL (0.0-1.0); UREA NITROGEN, BLOOD 10 mg/dL (7-18)
[2021-09-16] MEDS ORDERED: CEPH-588 PO (02:22)
[2021-09-16] MEDS ORDERED: SULF-59 PO (02:22)
[2021-09-16] MEDS ORDERED: ACET-8386 PO ×2 (02:22→02:33)
--- NOTE | 2021-09-16 02:29 | NUR ---
PATIENT CLEARED FOR DISHCARGE AT THIS TIME. PENDING FINISHING JEFFERY
[2021-09-16] MEDS ORDERED: ONDANSETRON 4 MG/2 ML VIAL IVP ONE (02:40)
[2021-09-16] MEDS ORDERED: MORPHINE SULFATE 4 MG/ML SYR IVP ONE (02:40)
--- NOTE | 2021-09-16 03:48 | NUR ---
PATIENT DISCHARGED AT THIS TIME. MEDICATIONS FINISHED AT THIS TIME. ADVISED TO FOLLOW UP WITH PCP AND RETURN IF CONDITION WORSENS. NO OTHER COMPLAINTS OR CONECRNS A TTHIS TIME FOLLOWING DISHCARGE TEACHING
[2021-09-16 03:49] VITALS: BP 137/88
[2021-09-20] MEDS ORDERED: GLIP10TE PO (00:21)
[2021-09-24] MEDS ORDERED: AMOX-999 PO (09:48)
[2021-09-24] MEDS ORDERED: LANTUS SUBQ (09:48)
== END 2021-09-16 03:48 | disposition home or self-care (01) ==
LOC: MED 00:08
DX: N76.4 Abscess of vulva (principal); N76.2 Acute vulvitis; E11.9 Type 2 diabetes mellitus without complications; K21.9 Gastro-esophageal reflux disease without esophagitis; E03.9 Hypothyroidism, unspecified; Z98.890 Other specified postprocedural states; Z79.4 Long term (current) use of insulin; Z79.899 Other long term (current) drug therapy; Z88.6 Allergy status to analgesic agent
CPT/HCPCS: 36415; 80053; 81003; 81025; 82948; 83605; 84484; 85025; 85610; 85730; 87040; 87070; 87075; 87086; 87205; 93005; 96365; 96366; 96368; 96375; 99284; J2001; J2270; J2405; J2543; J3370; J7030

== ENCOUNTER 2021-12-05 00:49 | Emergency (ER) | payer BC ==
[~2021-12-05] VITALS: Ht 162.6 cm; Wt 91.6 kg
[~2021-12-05 00:49] MED LIST changes: -ACET-9525 PO; +AMOX-999 PO; -ATI.5 PO; -CLIN300C2 PO; +GLIP10TE PO; -IBUP-974 PO; -INSU100S22 SUBQ; -LACT-2; -MAG-27 PO; -ONDA-188 PO; -SLIDE SUBQ; -SULF-280 PO
[2021-12-05 00:57] VITALS: BP 125/82
--- NOTE | 2021-12-05 00:57 | NUR ---
Dr. Novak examining patient.
--- NOTE | 2021-12-05 01:10 | NUR ---
PT TAKEN TO BED 4
--- NOTE | 2021-12-05 01:11 | NUR ---
X-Ray at bedside.
--- NOTE | 2021-12-05 01:36 | NUR ---
40/F BIB SELF C/O ANGELICA NUMBNESS ON ARMS/LEGS [id number]. PATIENT STATED THAT "I FEEL TINGLING AND NUMLESS". PATIETN REPORTS SHARP MORTENSEN PAIN 8/10, AND PHOTOPHOBIA. PATIENT TOOK IBUPROFEN, DOESNT RECALL THE TIME, WITH LITTLE RELIEF. PATIENT STATED "I'M SO STRESSED, I DONT KNOW WHATS CAUSING IT". RR ARE EVEN AND UNLABORED. APPEARS TO BE IN NO DISTRESS. PATIETN PLACED IN GOWN, BED LOW AND LOCKED. SIDE RAIL UP FOR SAFETY. ALL NEEDS MET AT THIS TIME. PMHX DM, THYROID, ASTHMA/SINUSITIS, PALPITATION MEDS GLIPIZIDE 10MG, LEVOTHYROXINE 50, ALBUTEROL ALLERGIES ASPIRIN
[2021-12-05 01:49] LABS: APPEARANCE,URINE CLEAR (CLEAR); BILIRUBIN,URINE NEGATIVE (NEGATIVE); BLOOD, URINE NEGATIVE (NEGATIVE); COLOR,URINE YELLOW (YELLOW); LEUKOCYTE ESTERASE ,URINE NEGATIVE (NEGATIVE); NITRITE, URINE NEGATIVE (NEGATIVE); UGLUCOSE 3+ (NEGATIVE)
[2021-12-05 01:53] LABS: BASOPHILS % (AUTO) 0.7 % (0.0-2.0); EOSINOPHILS # (AUTO) 0.1 K/uL (0-0.4); EOSINOPHILS % (AUTO) 2.4 % (0.0-4.0); HEMATOCRIT 35.3 % (36-48); HEMOGLOBIN 10.8 g/dL (12.0-16.0); LYMPHOCYTES # (AUTO) 2.9 K/uL (2.5-16.5); LYMPHOCYTES % (AUTO) 53.7 % (20.5-51.1); MEAN CORPUSCULAR HEMOGLOBIN 20 pg (27-31); MEAN CORPUSCULAR HGB CONC 31 g/dL (33-37); MEAN CORPUSCULAR VOLUME 66.2 fL (80-94); MONOCYTES # (AUTO) 0.3 K/uL (0.8-1.0); MONOCYTES % (AUTO) 4.8 % (1.7-9.3); PLATELET COUNT (AUTO) 228 K/uL (140-450); RED BLOOD CELL COUNT(AUTO) 5.33 MIL/uL (4.20-5.40); WHITE BLOOD COUNT (AUTO) 5.3 K/uL (4.8-10.8)
[2021-12-05 02:01] LABS: ALBUMIN 3.7 g/dL (3.4-5.0); ANION GAP 9.3 (8-16); CARBON DIOXIDE 27.6 mmol/L (21-32); CREATININE 0.6 mg/dL (0.6-1.3); POTASSIUM 3.9 mmol/L (3.5-5.1); TOTAL BILIRUBIN 0.8 mg/dL (0.0-1.0)
[2021-12-05 02:18] LABS: NEUTROPHILS % (AUTO) 38.4 % (42.2-75.2)
[2021-12-05 02:27] LABS: RBC,URINE 0-5 /HPF (0-5)
--- NOTE | 2021-12-05 03:20 | NUR ---
WATER GIVEN TO PATIENT. PATIENT APPEARS TO BE UNDER NO DISTRESS. BED LOW AND LOCKED. ANGELICA SIDE RAILS UP FOR SAFETY. ALL NEEDS MET AT THIS TIME.
--- NOTE | 2021-12-05 03:27 | NUR ---
US AT BEDSIDE
--- NOTE | 2021-12-05 04:40 | NUR ---
IV removed, catheter intact and site benign. Applied folded 4x4 gauze and tape to stop bleeding.
--- NOTE | 2021-12-05 04:42 | NUR ---
Dr. Novak examining patient.
[2021-12-05 04:43] VITALS: BP 130/85
--- NOTE | 2021-12-05 04:43 | NUR ---
Patient discharged with v/s stable. Written and verbal after care instructions given and explained by MD Novak. Patient verbalized understanding. Ambulatory with steady gait. Advised to follow up with PMD.
--- NOTE | 2021-12-05 04:44 | NUR ---
Chart checked and completed.
== END 2021-12-05 04:43 | disposition home or self-care (01) ==
LOC: MED 00:49
DX: R14.0 Abdominal distension (gaseous) (principal); Z20.822 Contact with and (suspected) exposure to COVID-19; E11.9 Type 2 diabetes mellitus without complications; K21.9 Gastro-esophageal reflux disease without esophagitis; E03.9 Hypothyroidism, unspecified; Z88.6 Allergy status to analgesic agent; Z79.4 Long term (current) use of insulin
CPT/HCPCS: 36415; 71045; 76856; 80053; 81001; 81025; 83880; 84484; 85025; 87086; 87426; 93005; 99285; Q0092